=== PATIENT | male | born 1955 | race Caucasian/White ===

== ENCOUNTER → 2018-11-11 | Outpatient (CLI) | payer OTHER ==
[~2018-11-11] VITALS: Ht 157.5 cm; Wt 103.9 kg
[~2018-11-11] MED LIST: CELEBREX 200 M200 M1 PO; ERGOCALCIF50000 UNIT PO; FLOMAX0.4 MG PO; FLONASE 0.05%50 MCG NASAL; GABAPENTIN 100100 MG PO; LOMOTIL TABLET1 EACH PO; LOSARTAN POTASS50 MG PO; METFORMIN HCL500 MG PO; NEURONTIN 300300 M1 PO; PRAMIPEXOLE DI1.5 MG PO; PRAVACHOL40 MG PO
--- NOTE | ~2018-11-11 | HPC ---
[facility] [address] [place] [address] PAIN MANAGEMENT CONSULTATION Name: MARYLU RODRIGUEZ Room #: REG TIERA Ra.#: [id number] Admission: 11/11/18 ������������������ Attend Phys: Tasha Reno MD Discharge: ������������������ Date of : 53 Report #: [id number] THIS REPORT FOR: //name// CC: Nancy Reno DATE OF SERVICE: 11/11/2018 CHIEF COMPLAINT: Left pain going down in my left leg on the back side. HISTORY: The patient is a 63-year-old gentleman, who has been referred to the pain clinic for evaluation of pain, which is burning and going down the back of his leg to the ankle. It is noted that the pain has been getting worse over the last few weeks. He describes it as continuous, steady, constant, burning, shooting, aching, throbbing, pounding and stabbing. He rates it as a 7/10 at this juncture. He has not had back surgery. He notes that this pain has been problematic and has changed the way that he walks. He does have some pain in his knees. He has had knee surgery. He does have some pain on his left side. He states that he did fall in his basement. There were no fractured ribs. The patient's says he has been told that he has some narrowing in the lower portion of his back and also has some arthritis in neck. The patient has come to the pain clinic for evaluation and the possibility of an epidural injection. PAST MEDICAL HISTORY: Tremors, chronic sleep apnea, interstitial cystitis, restless legs syndrome, hyperlipidemia, excessive sleepiness, myoclonus, right arm weakness and numbness, chronic left lumbar radiculopathy, claustrophobia, and non-insulin dependent diabetes. PAST SURGICAL HISTORY: Bilateral knee partial replacements in 2011 and 2012, left wrist surgery in 2009, double hernia repair in 1997, and right hand/finger first digit amputation. MEDICATIONS: Pravachol 40 mg, metformin 500 mg b.i.d., Lomotil 4 times daily, Drisdol 50,000 units weekly, Flonase 0.05% nasal spray, pramipexole 1.5 mg daily, Flomax 0.4 mg, Celebrex 200 mg, losartan 50 mg, and gabapentin 100 mg 3 capsules at bedtime. ALLERGIES: DARVON CAUSES SHAKINESS, METOPROLOL, CLONAZEPAM, AND LUCIANA INHIBITORS. SOCIAL HISTORY: He is retired, not worked in last 2 years. PAIN CLINIC ASSESSMENT AND PQRS: 1. History of osteoarthritis. The patient has had lower extremity knee replacements. 2. The patient is not being treated for rheumatoid arthritis. 3. Pain intensity is 7/10. [address] [address] PAIN MANAGEMENT CONSULTATION Name: MARYLU RODRIGUEZ Julio Room #: REG CLI [facility]#: [id number] Admission: 11/11/18 ������������������ Attend Phys: Tasha Reno MD Discharge: ������������������ Date of : 53 Report #: [id number] 4. Fall history: The patient fell about a month ago and hit his ribs. There were no fractures. 5. Blood thinner. The patient is not on a blood thinning medication. 6. Hypertension. The patient is being treated for hypertension. 7. Opioid greater than 6 weeks. The patient is not receiving opioids on a regular basis. 8. Risk assessment tool, low for opioid use. 9. Functional assessment tool, 58/70. 10. Recreational drug use. The patient denies use of recreational drugs. 11. Tobacco. The patient denies use of tobacco. 12. Alcohol. The patient drinks 1-2 alcoholic beverages on occasion. PHYSICAL EXAMINATION: GENERAL: The patient is a well-developed, well-nourished white male. He appears his stated age. He is alert and oriented x 3. His affect is appropriate. Speech is fluent. Height is 5 feet 2 inches, weight is 229 pounds, and BMI is 41.9. VITAL SIGNS: Blood pressure is 128/86, pulse rate is 95, respiratory rate is 20, and room air saturation is 97%. HEENT: Normocephalic, atraumatic. Extraocular eye muscles intact. Sclerae nonicteric. Mucous membranes moist. NECK: Without adenopathy or JVD. He is not complaining of cervical complaints regarding his shoulders or arms today. HEART: Regular rate. ABDOMEN: Nontender. Bowel sounds present. LUNGS: Clear to auscultation. MUSCULOSKELETAL: The patient is without significant scoliosis, kyphosis, or lordosis. He complains of pain that is radiating from the left buttocks down into his ankle on the left side. He has some discomfort in the left hip area as well. Deep tendon reflexes for the biceps in the arms are +1 bilaterally, absent at the knees bilaterally, absent at the ankles bilaterally. The patient sits and constantly rubs his left and right knee during the interview. Left lateral bending and right lateral bending were not very problematic. Forward bending to about 90 degrees increase pain and discomfort in the left lower extremity. Left lateral rotation, some increased pain in the left lower extremity. LABORATORY DATA: MRI of the cervical spine dated 07/25/2018: 1. C3/C4 level demonstrates mild posterior disk osteophyte complex. There is mild bilateral facet hypertrophy. Mild right neural foraminal narrowing is seen. Mild spinal canal narrowing is seen at the AP diameter of the thecal sac estimated at 9 mm. 2. C4/C5 level demonstrates posterior disk osteophyte complex. There is mild bilateral facet hypertrophy. Mild bilateral neural foraminal narrowing is seen. The mid spinal canal narrowing is seen with thecal sac estimated at 9 mm. 3. C5/C6 demonstrate minimal posterior disk osteophyte complex. There is mild [facility] [address] [place] [address] PAIN MANAGEMENT CONSULTATION Name: MARYLU RODRIGUEZ Julio Room #: REG [facility] MosesJulio.#: [id number] Admission: 11/11/18 ������������������ Attend Phys: Tasha Reno MD Discharge: ������������������ Date of : 53 Report #: [id number] bilateral facet hypertrophy. Borderline mild spinal canal narrowing seen with AP diameter of the thecal sac estimated at 9-10 mm. 4. C6/C7 and C7/T1 levels are unremarkable. IMPRESSION: 1. Left sciatic outflow tract pain in the L5-S1 dermatomal distribution. 2. Tremors. 3. Chronic sleep apnea. 4. Interstitial cystitis. 5. Restless legs syndrome. 6. Hyperlipidemia. 7. Excessive sleepiness. 8. Myoclonus. 9. Right arm weakness and numbness. 10. Chronic left lumbar radiculopathy. 11. Claustrophobia. 12. Non-insulin dependent diabetes. RECOMMENDATIONS: We have discussed treatment options with the patient. Risks and benefits of epidural steroid injection were discussed. A model was used to indicate the area of probable pathology. The patient states that he understands the possible complications, which were described as possibility of infection, no improvement in pain, worsening of pain, nerve damage, paralysis, and bleeding. He agrees to proceed. We will proceed with epidural steroid injection in the lumbar area L5 on the left. The patient agreed and proceeded to the procedure area. He was assisted in getting on the examination table. A pillow was placed under his abdomen to bolster and improve positioning. His back was sterilely prepped with a Betadine solution. Fluoroscopy using anterior, posterior as well as lateral viewing were implemented. A 25-gauge needle was then advanced into the L5-S1 area. A 0.25% bupivacaine was infiltrated. A 17-gauge Tuohy with loss of resistance technique using a midline approach directed toward the left paramedian area was undertaken. Aspiration was negative. A total of 80 mg Depo-Medrol, 40 mg of triamcinolone, and 2 mL of 0.25% bupivacaine was injected. The patient tolerated the procedure well. A total of 17 seconds fluoroscopy time was used. He will follow up in the future as needed. The patient will monitor his blood sugar given that he has history of diabetes. We would like to thank you for letting us to participate in his care. We hope he continues to improve. ��������������������������������������������� ���������������������������������������� By: ��������������������������������������������� 1401 0040 Tasha Reno MD /GAMAL
[2018-11-11 09:03] VITALS: BP 128/86
--- NOTE | 2018-11-11 09:51 | NUR ---
Pain Clinic Assessment: 1. History of Osteoarthritis: Left Lower Extremity Right Lower Extremity Right Upper Extremity History of Rheumatoid Arthritis: Not Applicable 2. Height: 5 ft. 2 in. 157.5 cm. Weight: 229.0 lb. oz. 103.874 kg. Patient's BMI: 41.9 3. Vital Signs: BP: 128/86 Pulse: 95 Resp: 20 Temp: 02 Sat: 97 ECG Mon: 4. Pain Intensity: 7 5. Fall Risk: Dizziness: Y Needs help standing or walking: N Fallen in the last 3 months: Y Fall risk comments: 6. Patient on Blood Thinner: None 7. History of Hypertension: Y 8. Opioid Therapy greater than 6 weeks: N Opiate Contract Signed: 9. Risk Assessment Tool Provided: 10. Functional Assessment Tool: 58/60 11. Recreational Drug Use: Never Drug Type: Tobacco Use: Never Smoker Tobacco Type: Amount or Packs/day: How Many Years: Alcohol Use: Yes Frequency: Special Occasions Quant: 1-2
== END | disposition home or self-care (01) ==
LOC: PAIN 06:43
DX: M54.16 Radiculopathy, lumbar region (principal); G47.30 Sleep apnea, unspecified; N30.10 Interstitial cystitis (chronic) without hematuria; G25.81 Restless legs syndrome; E78.5 Hyperlipidemia, unspecified; G25.3 Myoclonus; E11.9 Type 2 diabetes mellitus without complications; M19.90 Unspecified osteoarthritis, unspecified site; I10 Essential (primary) hypertension; Z96.653 Presence of artificial knee joint, bilateral; Z98.890 Other specified postprocedural states; Z79.899 Other long term (current) drug therapy; Z79.84 Long term (current) use of oral hypoglycemic drugs; Z88.8 Allergy status to other drugs, medicaments and biological substances

== ENCOUNTER → 2018-12-21 | Outpatient (CLI) | payer OTHER ==
[~2018-12-21] VITALS: Ht 157.5 cm; Wt 101.9 kg
[~2018-12-21] MED LIST changes: +MEDROLDOSEPACK PO
--- NOTE | ~2018-12-21 | HPC ---
[facility] [place] [address] PAIN MANAGEMENT CONSULTATION Name: MARYLU RODRIGUEZ Room #: REG TIERA Ra.#: [id number] Admission: 12/21/18 ������������������ Attend Phys: Tasha Reno MD Discharge: ������������������ Date of : 53 Report #: [id number] THIS REPORT FOR: //name// CC: Nancy Reno DATE OF SERVICE: 12/21/2018 CHIEF COMPLAINT: "Left leg pain with pain radiating down into the posterior portion of my leg with numbness, tingling and weakness." FOLLOWUP HISTORY: The patient is a 63-year-old gentleman who has been seen in the pain clinic because of pain and discomfort. He has had some pain and discomfort, which has radiated down his left leg to the lateral side involving the cornell, calf and ankle. He has noted some sensory changes. He has returned today with a desire to undergo another epidural steroid injection. He has noted some burning, throbbing and aching. He has gleaned benefits from the last epidural steroid injection. He has a desire to go to [place]. He is thinking about going in the next few weeks. He would like to undergo an epidural steroid injection to help with his pain control. He denies any new bowel or bladder dysfunction. Denies any saddle numbness. ALLERGIES: DARVON CAUSES SHAKINESS, METOPROLOL, CLONAZEPAM, LUCIANA INHIBITORS. PAIN CLINIC ASSESSMENT AND PQRS: 1. History of osteoarthritis. The patient has had knee replacements. He has not been treated for rheumatoid arthritis. 2. Pain intensity 03/15. 3. Fall risk. The patient has not fallen since we saw him last. 4. Height 5 feet 2 inches, weight 224 pounds, BMI is 41. 5. Vital signs: Blood pressure 153/85, pulse 95, respiratory rate 18, room air saturation 95%. 6. Blood thinner. The patient is not on a blood thinning medication. 7. Hypertension. The patient has been treated for hypertension. 8. Opioids greater than 6 weeks. The patient is not receiving opioid medications on a regular basis. 9. Risk assessment tool, low for opioid use. 10. Functional assessment tool, 58/70. 11. Recreational drug use. The patient denies use of recreational drugs. 12. Tobacco: The patient has never smoked. 13. Alcohol: The patient occasionally drinks alcoholic beverages. PHYSICAL EXAMINATION: GENERAL: The patient is a well-developed, well-nourished, obese white male. Appears his stated age. He is alert and oriented x 3. His affect is appropriate[place] [address] PAIN MANAGEMENT CONSULTATION Name: MARYLU RODRIGUEZ Room #: REG [facility] Megan#: [id number] Admission: 12/21/18 ������������������ Attend Phys: Tasha Reno MD Discharge: ������������������ Date of : 53 Report #: [id number] HEENT: Normocephalic, atraumatic. Extraocular eye muscles intact. Sclerae nonicteric. Mucous membranes are moist. NECK: Without adenopathy or JVD. HEART: Regular rate. ABDOMEN: Protuberant. Bowel sounds present. LUNGS: Clear to auscultation. MUSCULOSKELETAL: Without significant scoliosis, kyphosis or lordosis. The patient has pain that radiates down his buttocks in the L5-S1 dermatomal distribution. The patient has perception of some sensory changes in the L5-S1 dermatomal distribution involving his left leg. IMPRESSION: 1. Left sciatica in the L5-S1 dermatomal distribution. 2. Tremors. 3. Chronic sleep apnea. 4. Interstitial cystitis. 5. Restless leg syndrome. 6. Hyperlipidemia. 7. Excessive sleepiness. 8. Myoclonus. 9. Right arm weakness and numbness. 10. Left lumbar radicular pain, L5-S1 dermatomal distribution. 11. Claustrophobia. 12. Non-insulin dependent diabetes. RECOMMENDATIONS: We discussed treatment options with the patient. Risks and benefits of an epidural steroid injection were discussed. The patient felt that the last injection was beneficial. He has noted improvement in his pain. He is still having pain and discomfort. He is intending on going to [place]. This was within the next week or so. He would like to undergo another epidural steroid injection to improve the chances that he will be able to enjoy his vacation. The patient understands the risks, which could include but are not limited to infection, worsening of pain, no improvement in pain, increased pain and discomfort and nerve damage. PROCEDURE NOTE: The patient was taken to the procedure area. He was then assisted in getting on the examination table. His back was sterilely prepped with a Betadine solution. Fluoroscopy was used to identify the L5-S1 interspace. Anterior, posterior viewing were undertaken. Lateral viewing was implemented as well. A 0.25% bupivacaine was infiltrated at the L5-S1 area. A 17-gauge Tuohy with loss of resistance technique was used to perform an interlaminar injection. Aspiration was negative. A total of 80 mg of Depo-Medrol, 40 mg of triamcinolone and 2 mL of 0.25% bupivacaine were injected. The patient tolerated the procedure well. Pain decreased to 0 at the time of discharge. He will monitor his blood sugars. The patient is going out of country. We have given him a Medrol Dosepak to take should his back pain become [facility] [address] [place] [address] PAIN MANAGEMENT CONSULTATION Name: MARYLU RODRIGUEZ Julio Room #: REG [facility] M.R.#: [id number] Admission: 12/21/18 ������������������ Attend Phys: Tasha Reno MD Discharge: ������������������ Date of : 53 Report #: [id number] more problematic. He is aware of the possibility of increased blood sugars. He will monitor his blood sugar. A total of 20 seconds fluoroscopy time was used. We would like to thank you for letting us participate in his care. We hope he continues to improve. ��������������������������������������������� ���������������������������������������� By: ��������������������������������������������� [id number] Tasha Reno MD /GAMAL
[2018-12-21 10:28] VITALS: BP 153/85
--- NOTE | 2018-12-21 10:37 | NUR ---
Pain Clinic Assessment: 1. History of Osteoarthritis: Left Lower Extremity Right Lower Extremity Right Upper Extremity History of Rheumatoid Arthritis: Not Applicable 2. Height: 5 ft. 2 in. 157.5 cm. Weight: 224.6 lb. oz. 101.878 kg. Patient's BMI: 41.1 3. Vital Signs: BP: 153/85 Pulse: 95 Resp: 18 Temp: 02 Sat: 95 ECG Mon: 4. Pain Intensity: 7 5. Fall Risk: Dizziness: N Needs help standing or walking: N Fallen in the last 3 months: Y Fall risk comments: 6. Patient on Blood Thinner: None 7. History of Hypertension: Y 8. Opioid Therapy greater than 6 weeks: N Opiate Contract Signed: 9. Risk Assessment Tool Provided: 10. Functional Assessment Tool: 58/60 11. Recreational Drug Use: Never Drug Type: Tobacco Use: Never Smoker Tobacco Type: Amount or Packs/day: How Many Years: Alcohol Use: Yes Frequency: Quant:
== END | disposition home or self-care (01) ==
LOC: PAIN 11-30 11:05
DX: M54.16 Radiculopathy, lumbar region (principal); G89.29 Other chronic pain; I10 Essential (primary) hypertension; E11.9 Type 2 diabetes mellitus without complications; E78.5 Hyperlipidemia, unspecified; G47.39 Other sleep apnea; N30.10 Interstitial cystitis (chronic) without hematuria; F40.240 Claustrophobia; Z96.653 Presence of artificial knee joint, bilateral; Z88.8 Allergy status to other drugs, medicaments and biological substances; Z98.890 Other specified postprocedural states; Z79.899 Other long term (current) drug therapy